=== PATIENT | male | born 1970 | race American Indian/Alaskan Native ===

== ENCOUNTER 2017-12-18 05:36 | Emergency (ER) | payer OTHER ==
[2017-12-18 05:57] VITALS: BMI 29.7
[2017-12-18 06:00] VITALS: BP 145/85; PULSE 72; RESP 16; TEMP 98.2; O2SAT 100
[2017-12-18] MEDS ORDERED: cefTRIAXone (Rocephin) 250 mg Inj IM ONE (06:09)
[2017-12-18] MEDS ORDERED: cefTRIAXone (Rocephin) 250 mg Inj ONE (06:25)
--- NOTE | 2017-12-18 06:28 | ED PDOC ---
HPI: Male Pain Time Seen by Provider: 12/18/17 05:51 Chief Complaint (Nursing): Male Genitourinary Chief Complaint (Provider): Male Genitourinary History Per: Patient History/Exam Limitations: no limitations Onset/Duration Of Symptoms: Days (x7) Current Symptoms Are (Timing): Still Present Associated Symptoms: denies: Fever, Chills, Back Pain, Urinary Symptoms Additional Complaint(s): Jose Marina is a 47 year old male with no significant past medical history who is presenting to the ED for evaluation of urinary discomfort , onset approximately 1 week ago. Patient states that he suspects that his girlfriend is being unfaithful and he has had a burning sensation when urinating for the past week. He denies any associated fever, back pain, chills, urethral discharge, or hematuria. PMD: Deysi Skelton Past Medical History Reviewed: Historical Data, Nursing Documentation, Vital Signs Vital Signs: Last Vital Signs Temp 98.2 F 12/18/17 05:57 Pulse 72 12/18/17 05:57 Resp 16 12/18/17 05:57 BP 145/85 12/18/17 05:57 Pulse Ox 100 12/18/17 05:57 - Medical History PMH: HTN, Hypercholesterolemia Denies: End Stage Renal Disease, Chronic Kidney Disease - Surgical History Surgical History: No Surg Hx - Family History Family History: States: Unknown Family Hx - Social History Current smoker - smoking cessation education provided: No Alcohol: None Drugs: Denies - Home Medications Home Medications: Ambulatory Orders Medication Instructions Recorded Amoxicillin/Clavulanate [Augmentin 1 tab PO BID #14 tab 09/29/15 875 MG-125 MG] Ibuprofen [Motrin] 600 mg PO Q6H PRN #20 tab 09/29/15 Oxycodone HCl/Acetaminophen 1 tab PO Q6 #10 tab 09/29/15 [Percocet 325 mg-5 mg] - Allergies Allergies/Adverse Reactions: Allergies Allergy/AdvReac Type Severity Reaction Status Date / Time No Known Allergies Allergy Verified 12/18/17 05:57 Review of Systems ROS Statement: Except As Marked, All Systems Reviewed And Found Negative Constitutional: Negative for: Fever, Chills Genitourinary Male: Positive for: Other (burning while urinating, discomfort). Negative for: Hematuria, Penile Discharge Musculoskeletal: Negative for: Back Pain Physical Exam - Reviewed Nursing Documentation Reviewed: Yes Vital Signs Reviewed: Yes - Physical Exam Appears: Positive for: Well, Non-toxic, No Acute Distress Head Exam: Positive for: ATRAUMATIC, NORMAL INSPECTION, NORMOCEPHALIC Skin: Positive for: Normal Color, Warm, DRY Eye Exam: Positive for: EOMI, Normal appearance, PERRL ENT: Positive for: Normal ENT Inspection Neck: Positive for: Normal, Painless ROM Cardiovascular/Chest: Positive for: Regular Rate, Rhythm. Negative for: Murmur Respiratory: Positive for: Normal Breath Sounds. Negative for: Respiratory Distress Gastrointestinal/Abdominal: Positive for: Normal Exam, Soft. Negative for: Tenderness Back: Positive for: Normal Inspection. Negative for: L CVA Tenderness, R CVA Tenderness Extremity: Positive for: Normal ROM. Negative for: Deformity, Swelling Neurologic/Psych: Positive for: Alert, Oriented. Negative for: Motor/Sensory Deficits - ECG O2 Sat by Pulse Oximetry: 100 (RA) Pulse Ox Interpretation: Normal Medical Decision Making Medical Decision Making: Time: 6:12 Impression: 47 year old male presenting for STD evaluation Plan: --ED Urine Dipstick --Chlamydia/GC RNA, TMA --Rocephin 250 mg PO --Zithromax 1,000 mg PO --Urine Culture --Urinalysis Offered empiric treatment; patient agreed. Instructed to follow up with PMD. Upon provider reevaluation patient is feeling better, is medically stable, and requires no further treatment in the ED at this time. Patient will be discharged. Counseling was provided and all questions were answered regarding diagnosis and need for follow up with PMD. There is agreement to discharge plan. Return if symptoms persist or worsen. Scribe Attestation: Documented byMarsha acting as a scribe for Santos Alas MD. Provider Scribe Attestation: All medical record entries made by the Scribe were at my direction and personally dictated by me. I have reviewed the chart and agree that the record accurately reflects my personal performance of the history, physical exam, medical decision making, and the department course for this patient. I have also personally directed, reviewed, and agree with the discharge instructions and disposition. Disposition - Clinical Impression Clinical Impression: Encounter for assessment of STD exposure - Patient ED Disposition Is Patient to be Admitted: No - Disposition Disposition: Routine/Home Disposition Time: 06:30 Condition: STABLE Instructions: Screening for Sexually Transmitted Infections Forms: [facility] (Irish)
[2017-12-18] MEDS ORDERED: Sterile Water 10 ML IV ONE (06:36)
[2017-12-18 07:17] LABS: SQUAMOUS EPITHIAL < 1 /hpf (0-5); URINE BILIRUBIN NEGATIVE (NEGATIVE); URINE BLOOD NEGATIVE (NEGATIVE); URINE CLARITY CLEAR (Clear); URINE COLOR YELLOW (YELLOW); URINE GLUCOSE (UA) NEG (Normal); URINE LEUKOCYTE ESTERASE NEG Leu/uL (Negative); URINE PROTEIN NEGATIVE (NEGATIVE)
== END 2017-12-18 06:52 | disposition home or self-care (01) ==
LOC: H.ER 05:36
DX: Z20.2 Contact with and (suspected) exposure to infections with a predominantly sexual mode of transmission (principal); E78.00 Pure hypercholesterolemia, unspecified; I10 Essential (primary) hypertension
CPT/HCPCS: 81003; 87086; 87491; 87591; 96372; 99283; J0696